=== PATIENT | male | born 1955 | race Caucasian/White ===

== ENCOUNTER 2018-06-16 15:52 | Outpatient (CLI) | payer BC ==
[2018-06-16 17:40] LABS: ALT (SGPT) 41 U/L (8-55); ALT (SGPT) 42 U/L (8-55); AST (SGOT) 25 U/L (5-34); AST (SGOT) 26 U/L (5-34); Albumin 4.1 g/dL (3.4-4.8); Alkaline Phosphatase 83 U/L (40-150); Alkaline Phosphatase 84 U/L (40-150); Anion Gap 14 mmol/L (10-20); BUN (Urea Nitrogen) 15 mg/dL (8.4-25.7); Bilirubin, Direct 0.1 mg/dL (0.1-0.3); Bilirubin, Total 0.3 mg/dL (0.2-1.2); Calc. Creatinine Clearance 0 mL/min (70-130); Calcium 9.3 mg/dL (7.8-10.44); Carbon Dioxide 24 mmol/L (23-31); Chloride 105 mmol/L (98-107); Estimated GFR-MDRD 69; Globulin 2.9 g/dL (2.4-3.5); Glucose 101 mg/dL (80-115); Potassium 3.9 mmol/L (3.5-5.1); Protein, Total 6.9 g/dL (5.8-8.1); Sodium 139 mmol/L (136-145)
== END 2018-06-16 15:53 | disposition home or self-care (01) ==
LOC: LABBT 15:52
PROVIDERS: ATTEND Internal Medicine Cardiovascular Disease
DX: R07.89 Other chest pain (principal)
CPT/HCPCS: 36415; 80053; 84484; 93005; 93010

== ENCOUNTER 2018-06-17 06:20 | Day surgery (SDC) | payer BC ==
[2018-06-16 16:28] VITALS: BMI 28.5
[2018-06-17 07:07] LABS: #Basophils 0.1 thou/uL (0.0-0.2); #Eosinphils 0.3 thou/uL (0.0-0.7); #Monocytes 0.8 thou/uL (0.11-0.59); #Neutrophils 3.7 thou/uL (1.40-6.50); %Basophils 1.1 % (0.0-1.0); %Eosinophils 3.7 % (0.0-10.0); %Lymphocytes 38.3 % (21.0-51.0); %Monocytes 9.7 % (0.0-10.0); %Neutrophils 47.2 % (42.0-75.0); Hemoglobin 14.2 g/dL (14.0-18.0); Mean Corpuscular HGB CONC 32.9 g/dL (32.0-36.0); Mean Corpuscular Hemoglobin 31.9 pg (27.0-31.0); Mean Platelet Volume 6.3 fL (7.4-10.4); Platelet Count 267 thou/uL (130-400); RBC Distribution Width 11.9 % (11.5-14.5); Red Blood Cell (RBC) Count 4.44 mill/uL (4.70-6.10); White Blood Cell (WBC) Count 7.9 thou/uL (4.8-10.8)
[2018-06-17 07:26] LABS: Cardiac Risk 4.2 (Less than 4.5)
[2018-06-17] MEDS ORDERED: Diazepam 5 MG TAB ONE (07:34)
[2018-06-17] MEDS ORDERED: Midazolam HCl 2 mg/2 ml Vial ONE (08:31)
[2018-06-17] MEDS ORDERED: Iopamidol 370 76% 100 ML VIAL ONE (10:12)
--- NOTE | 2018-06-17 18:24 | DIS ---
DATE OF ADMISSION: 06/17/2018 DATE OF DISCHARGE: 06/17/2018 HISTORY: This is a very pleasant 62-year-old gentleman, who presented for evaluation of chest discomfort or dyspnea. The patient recently developed chest discomfort. He states this occurs primarily with exertion. He states he becomes markedly short of breath with this exertion. He was very physically active until this last week. The patient went to see his primary physician and was sent for further evaluation. The patient underwent an echocardiogram, which revealed normal left ventricular systolic function. HOSPITAL COURSE: On 06/17/2018, the patient underwent a left heart catheterization. He was found to have normal left ventricular systolic function with estimated ejection fraction 60% to 65%. The LVEDP was 24. The left anterior descending, left circumflex, and right coronary were free of significant disease. The patient is discharged in stable condition. DISCHARGE MEDICATIONS: 1. Aspirin 81 daily. 2. Proscar 5 daily. 3. Zocor 40 at bedtime. Job ID: [id number] MTDD
== END 2018-06-17 16:27 | disposition home or self-care (01) ==
LOC: CCL 06:20
PROVIDERS: ATTEND Internal Medicine Cardiovascular Disease
PROC: B2111ZZ Fluoroscopy of Multiple Coronary Arteries using Low Osmolar Contrast (ICD-10-PCS; principal; 2018-06-17)
PROC: 4A023N7 Measurement of Cardiac Sampling and Pressure, Left Heart, Percutaneous Approach (ICD-10-PCS; principal; 2018-06-17)
DX: R07.89 Other chest pain (principal); R06.02 Shortness of breath; E78.00 Pure hypercholesterolemia, unspecified; E78.5 Hyperlipidemia, unspecified; Z79.82 Long term (current) use of aspirin; Z79.899 Other long term (current) drug therapy
CPT/HCPCS: 80061; 85025; 93458; 99152; 99153; C1769; J1644; J2250; Q9967

== ENCOUNTER 2018-07-08 10:15 | Day surgery (SDC) | payer BC ==
[2018-07-07 11:50] VITALS: BMI 28.0
[2018-07-08 10:58] LABS: #Basophils 0.1 thou/uL (0.0-0.2); #Eosinphils 0.3 thou/uL (0.0-0.7); #Lymphocytes 3.3 thou/uL (1.20-3.40); #Monocytes 0.8 thou/uL (0.11-0.59); %Basophils 0.9 % (0.0-1.0); %Eosinophils 3.7 % (0.0-10.0); %Lymphocytes 44.4 % (21.0-51.0); %Monocytes 10.1 % (0.0-10.0); %Neutrophils 40.8 % (42.0-75.0); Hemoglobin 14.2 g/dL (14.0-18.0); Mean Corpuscular HGB CONC 33.7 g/dL (32.0-36.0); Mean Corpuscular Hemoglobin 31.5 pg (27.0-31.0); Mean Corpuscular Volume 93.5 fL (78.0-98.0); Mean Platelet Volume 6.4 fL (7.4-10.4); Platelet Count 229 thou/uL (130-400); RBC Distribution Width 11.7 % (11.5-14.5); White Blood Cell (WBC) Count 7.4 thou/uL (4.8-10.8)
[2018-07-08 11:06] LABS: INR-International Normal Ratio 0.9; PTT 29.5 SEC (22.9-36.1); Prothrombin Time 12.5 SEC (12.0-14.7)
[2018-07-08 11:17] LABS: Anion Gap 10 mmol/L (10-20); BUN (Urea Nitrogen) 17 mg/dL (8.4-25.7); Calc. Creatinine Clearance 112 mL/min (70-130); Calcium 9.2 mg/dL (7.8-10.44); Carbon Dioxide 28 mmol/L (23-31); Chloride 107 mmol/L (98-107); Estimated GFR-MDRD 79; Glucose 103 mg/dL (80-115); Potassium 4.2 mmol/L (3.5-5.1); Sodium 141 mmol/L (136-145)
[2018-07-08] MEDS ORDERED: Midazolam HCl 2 mg/2 ml Vial ONE ×2 (11:21→11:37)
[2018-07-08] MEDS ORDERED: Propofol 500 MG/50 ML VIAL ONE (11:37)
[2018-07-08] MEDS ORDERED: Ketamine 50 MG/ML (10ML VIAL) ONE (11:37)
[2018-07-08] MEDS ORDERED: Fentanyl 100 MCG/2 ML VIAL ONE (11:37)
[2018-07-08] MEDS ORDERED: Iopamidol 370 76% 50 ML VIAL FS ONE (13:32)
[2018-07-08] MEDS ORDERED: Acetaminophen/Codeine 30-300mg Tablet ONE ×2 (13:34→17:03)
[2018-07-08] MEDS ORDERED: PROPOFOL 200 MG/20 ML VIAL ONE (13:51)
--- NOTE | 2018-07-08 15:51 | RAD ---
CHEST ONE VIEW: HISTORY: Pacemaker placement. COMPARISON: None. FINDINGS: There is a dual-lead pacer. No pneumothorax. No effusion. No acute osseous abnormality. IMPRESSION: Uncomplicated placement of dual-lead pacer. POS: NAV
== END 2018-07-08 17:26 | disposition home or self-care (01) ==
LOC: CCL 10:15
PROVIDERS: ATTEND Internal Medicine Cardiovascular Disease
PROC: 02HK3JZ Insertion of Pacemaker Lead into Right Ventricle, Percutaneous Approach (ICD-10-PCS; principal; 2018-07-08)
PROC: 02H63JZ Insertion of Pacemaker Lead into Right Atrium, Percutaneous Approach (ICD-10-PCS; principal; 2018-07-08)
PROC: 0JH606Z Insertion of Pacemaker, Dual Chamber into Chest Subcutaneous Tissue and Fascia, Open Approach (ICD-10-PCS; principal; 2018-07-08)
DX: I44.1 Atrioventricular block, second degree (principal); I45.10 Unspecified right bundle-branch block; Z79.82 Long term (current) use of aspirin; Z79.899 Other long term (current) drug therapy; Z98.890 Other specified postprocedural states
CPT/HCPCS: 33208; 36005; 71045; 75820; 80048; 85025; 85610; 85730; C1785; C1898; J2250; J2704; J3010; J3490; Q9967

== ENCOUNTER 2021-10-17 12:11 | Outpatient (CLI) | payer MEDICARE, BC ==
[2021-10-17 14:12] LABS: Bilirubin Neg (Negative); Blood, Urine 25 (Negative); Clarity Cloudy (Clear); Glucose, Urine (Dipstick) Normal (Negative); Ketone, Urine Negative (Negative); Leukocyte 500 (Negative); Nitrite Negative (Negative); Protein, Urine (Dipstick) 30 mg/dl (Neg-Trace); Urobilinogen Normal mg/dL (Less than 2)
[2021-10-17 14:16] LABS: Hemoglobin 13.8 g/dL (13.5-17.5); Mean Corpuscular HGB CONC 33.8 g/dL (32.0-36.0); Mean Corpuscular Hemoglobin 32.4 pg (27.0-33.0); Mean Corpuscular Volume 95.8 fl (81.2-95.1); Mean Platelet Volume 9.7 fl (7.4-10.4); Platelet Count 252 10x3/uL (150-450); RBC Distribution Width 12.2 % (11.5-14.5); Red Blood Cell (RBC) Count 4.26 10x6/uL (4.32-5.72); White Blood Cell (WBC) Count 10.8 10x3/uL (3.5-10.5)
[2021-10-17 14:25] LABS: Bacteria/HPF 2+ HPF (None Seen); RBC/HPF 0-3 HPF (0-3); Renal Epithelial 0-3 HPF (None Seen); WBC/HPF Greater than 50 HPF (0-3)
[2021-10-17 14:27] LABS: Squamous Epithelial 0-3 HPF (0-3); White Blood Cell Cast 0-3 LPF (None Seen)
[2021-10-17 14:38] LABS: Anion Gap 16 mmol/L (10-20); BUN (Urea Nitrogen) 26 mg/dL (8.4-25.7); Calc. Creatinine Clearance 0 mL/min (70-130); Calcium 9.5 mg/dL (7.8-10.44); Carbon Dioxide 25 mmol/L (23-31); Chloride 104 mmol/L (98-107); Estimated GFR 69; Glucose 83 mg/dL (80-115); Potassium 4.6 mmol/L (3.5-5.1); Sodium 140 mmol/L (136-145)
[2021-10-17 14:39] LABS: INR-International Normal Ratio 0.9; PTT 24.3 sec (22.0-33.0)
== END 2021-10-17 12:12 | disposition home or self-care (01) ==
LOC: LABBT 12:11
PROVIDERS: ATTEND Urology
DX: Z01.812 Encounter for preprocedural laboratory examination (principal); Z12.5 Encounter for screening for malignant neoplasm of prostate; N40.1 Benign prostatic hyperplasia with lower urinary tract symptoms; R35.0 Frequency of micturition; R33.9 Retention of urine, unspecified; N35.916 Unspecified urethral stricture, male, overlapping sites; N35.911 Unspecified urethral stricture, male, meatal; Z20.822 Contact with and (suspected) exposure to COVID-19; Z87.440 Personal history of urinary (tract) infections
CPT/HCPCS: 80048; 81001; 85027; 85610; 85730; 87077; 87086; 87186; 87811

== ENCOUNTER 2021-11-14 08:12 | Outpatient (CLI) | payer MEDICARE, BC ==
[2021-11-14 09:54] LABS: Mean Corpuscular HGB CONC 34.3 g/dL (32.0-36.0); Mean Corpuscular Volume 93.4 fl (81.2-95.1); Mean Platelet Volume 9.6 fl (7.4-10.4); Platelet Count 241 10x3/uL (150-450); RBC Distribution Width 12.2 % (11.5-14.5); Red Blood Cell (RBC) Count 4.37 10x6/uL (4.32-5.72); White Blood Cell (WBC) Count 9.2 10x3/uL (3.5-10.5)
[2021-11-14 10:49] LABS: INR-International Normal Ratio 0.9; PTT 24.8 sec (22.0-33.0); Prothrombin Time 10.2 sec (9.5-12.1)
[2021-11-14 10:54] LABS: Anion Gap 15 mmol/L (10-20); BUN (Urea Nitrogen) 23 mg/dL (8.4-25.7); Calc. Creatinine Clearance 0 mL/min (70-130); Calcium 9.3 mg/dL (7.8-10.44); Carbon Dioxide 22 mmol/L (23-31); Chloride 107 mmol/L (98-107); Estimated GFR 77; Glucose 105 mg/dL (80-115); Potassium 4.8 mmol/L (3.5-5.1); Sodium 139 mmol/L (136-145)
== END 2021-11-14 08:13 | disposition home or self-care (01) ==
LOC: LABBT 08:12
PROVIDERS: ATTEND Urology
DX: Z01.818 Encounter for other preprocedural examination (principal); N40.1 Benign prostatic hyperplasia with lower urinary tract symptoms; R35.0 Frequency of micturition; R33.9 Retention of urine, unspecified; N35.916 Unspecified urethral stricture, male, overlapping sites; N35.911 Unspecified urethral stricture, male, meatal; Z87.440 Personal history of urinary (tract) infections; Z80.42 Family history of malignant neoplasm of prostate; Z20.822 Contact with and (suspected) exposure to COVID-19
CPT/HCPCS: 80048; 85027; 85610; 85730; 87811; 93005; 93010

== ENCOUNTER 2023-05-13 11:23 | Outpatient (CLI) | payer MEDICARE ==
[2023-05-13 13:21] LABS: #Basophils 0.1 10x3/uL (0.0-0.2); #Eosinphils 0.2 10x3/uL (0.0-0.5); #Monocytes 0.6 10x3/uL (0.0-1.1); #Neutrophils 3.3 10x3/uL (1.5-8.4); %Basophils 0.7 % (0.0-2.0); %Eosinophils 2.7 % (0.0-6.0); %Monocytes 7.7 % (0.0-10.0); %Neutrophils 41.4 % (40.0-75.0); Hemoglobin 14.4 g/dL (13.5-17.5); Mean Corpuscular HGB CONC 34.3 g/dL (32.0-36.0); Mean Corpuscular Hemoglobin 31.2 pg (27.0-33.0); Mean Corpuscular Volume 90.9 fl (81.2-95.1); Mean Platelet Volume 9.2 fl (7.4-10.4); Platelet Count 233 10x3/uL (150-450); RBC Distribution Width 12.8 % (11.5-14.5); Red Blood Cell (RBC) Count 4.62 10x6/uL (4.32-5.72); White Blood Cell (WBC) Count 8.1 10x3/uL (3.5-10.5)
[2023-05-13 14:09] LABS: ALT (SGPT) 45 U/L (8-55); AST (SGOT) 28 U/L (5-34); Albumin 4.5 g/dL (3.4-4.8); Alkaline Phosphatase 72 U/L (40-110); Anion Gap 11 mmol/L (10-20); BUN (Urea Nitrogen) 24 mg/dL (8.4-25.7); Bilirubin, Total 0.5 mg/dL (0.2-1.2); Calc. Creatinine Clearance 0 mL/min (70-130); Calcium 9.3 mg/dL (7.8-10.44); Carbon Dioxide 26 mmol/L (23-31); Chloride 104 mmol/L (98-107); Estimated GFR 82; Globulin 2.5 g/dL (2.4-3.5); Glucose 96 mg/dL (80-115); Potassium 4.4 mmol/L (3.5-5.1); Sodium 137 mmol/L (136-145)
== END 2023-05-13 11:24 | disposition home or self-care (01) ==
LOC: LABBT 11:23
PROVIDERS: ATTEND Surgery
DX: Z01.818 Encounter for other preprocedural examination (principal); R59.1 Generalized enlarged lymph nodes
CPT/HCPCS: 80053; 85025; 93005; 93010

== ENCOUNTER 2023-05-26 05:51 | Day surgery (SDC) | payer MEDICARE ==
[2023-05-13 12:09] VITALS: BMI 26.9
[2023-05-26] MEDS ORDERED: CEFAZOLIN 2 GM VIAL ONE (06:44)
[2023-05-26] MEDS ORDERED: Sodium Chloride 0.9% 100 ML ONE ×2 (06:44→08:49)
[2023-05-26] MEDS ORDERED: EPINEPHrine 1 MG/ML VIAL ONE (06:53)
[2023-05-26] MEDS ORDERED: Bupivacaine 0.25% HCL 30 ML VIAL ONE (06:53)
[2023-05-26] MEDS ORDERED: fentaNYL PF 100 MCG/2 ML SYRINGE ONE ×2 (06:59→09:17)
[2023-05-26] MEDS ORDERED: PROPOFOL 20 ML ONE (06:59)
[2023-05-26] MEDS ORDERED: Rocuronium Bromide 10 MG/ML (10ML VIAL) ONE (07:00)
[2023-05-26] MEDS ORDERED: Lidocaine 1% PF 5 ML VIAL ONE (07:00)
[2023-05-26] MEDS ORDERED: Midazolam HCl 2 mg/2 ml Vial ONE ×2 (07:30→09:43)
[2023-05-26] MEDS ORDERED: Ondansetron PF 4 MG/2 ML Vial ONE (07:47)
[2023-05-26] MEDS ORDERED: Dexamethasone 4 mg/ml Vial ONE (07:47)
[2023-05-26] MEDS ORDERED: ePHEDrine Sulfate 50 MG/10 ML VIAL ONE (07:54)
[2023-05-26] MEDS ORDERED: Ketorolac Tromethamine 30 MG (1 mL) VIAL ONE (08:46)
[2023-05-26] MEDS ORDERED: Glycopyrrolate 0.2 MG/ML 5 ML SYRINGE ONE (08:46)
[2023-05-26] MEDS ORDERED: NEOSTIGMINE 3 MG/3 ML SYR 3 MG/3 ML SYRINGE ONE (08:46)
[2023-05-26] MEDS ORDERED: Dexmedetomidine 200 MCG/2 ML VIAL ONE (08:49)
== END 2023-05-26 11:25 | disposition home or self-care (01) ==
LOC: SDC 05:51
PROVIDERS: ATTEND Surgery
PROC: 07BB4ZX Excision of Mesenteric Lymphatic, Percutaneous Endoscopic Approach, Diagnostic (ICD-10-PCS; principal; 2023-05-26)
DX: R59.0 Localized enlarged lymph nodes (principal); N62 Hypertrophy of breast; E78.00 Pure hypercholesterolemia, unspecified; Z95.0 Presence of cardiac pacemaker; Z79.82 Long term (current) use of aspirin; Z88.8 Allergy status to other drugs, medicaments and biological substances; Z79.899 Other long term (current) drug therapy
CPT/HCPCS: 38570; J0171; 88184; 88185; 88307; 88341; 88342; J0665; J1100; J1885; J2250; J2405; J2704; J3490

== ENCOUNTER 2024-04-05 08:45 | Outpatient (CLI) | payer MEDICARE | END 2024-04-05 08:46 | disposition home or self-care (01) | LOC: PET 08:45 | PROVIDERS: ATTEND Internal Medicine Hematology & Oncology | DX: C7A.098 Malignant carcinoid tumors of other sites (principal); C77.8 Secondary and unspecified malignant neoplasm of lymph nodes of multiple regions | CPT/HCPCS: 78815; A9552 ==